=== PATIENT | male | born 1990 | race Caucasian/White ===

== ENCOUNTER 2020-04-09 22:18 | Emergency (ER) | payer OTHER ==
[~2020-04-09] VITALS: Ht 170.2 cm; Wt 81.7 kg
[2020-04-09] MEDS ORDERED: PEPCID20 MG PO (22:44)
[2020-04-09] MEDS ORDERED: CELEXA20 MG PO (22:44)
== END 2020-04-10 08:02 | disposition short-term general hospital (02) ==
LOC: ED 22:18
DX: S02.602A Fracture of unspecified part of body of left mandible, initial encounter for closed fracture (principal); S02.601A Fracture of unspecified part of body of right mandible, initial encounter for closed fracture; F32.9 Major depressive disorder, single episode, unspecified; Z87.891 Personal history of nicotine dependence; Z79.899 Other long term (current) drug therapy; Y04.0XXA Assault by unarmed brawl or fight, initial encounter
CPT/HCPCS: 70486; 96361; 96374; 96376; 99284-25; J1170; J2550; J7030

== ENCOUNTER 2024-08-06 07:04 | Day surgery (SDC) | payer OTHER ==
[~2024-08-06] VITALS: Ht 170.2 cm; Wt 73.0 kg
[~2024-08-06 07:04] MED LIST: CELEXA20 MG PO; INTUNIV4 MG PO; PEPCID20 MG PO; RIZATRIPTAN10 MG PO; TRAZODONE HCL50 MG PO; VENTOLIN HFA18 GM INH
[2024-08-06] MEDS ORDERED: PANTOPRAZOLE SODIUM 40 MG/10 ML VIAL IV ONE (07:30)
[2024-08-06 08:04] LABS: BASOPHILS 0.9 % (0-2); HEMATOCRIT 47.1 % (35.0-50.0); HEMOGLOBIN 15.8 g/dL (12.0-18.0); LYMPHOCYTES 29.1 % (24-44); MCHC 33.7 g/dl (30-36); PLATELET COUNT 242 K/uL (140-440); RBC 5.47 M/ul (4.3-5.7); RDW 12.7 (10.5-15.0)
[2024-08-06 08:14] LABS: ALBUMIN 4.4 g/dL (3.4-5.0); ALBUMIN/GLOBULIN RATIO 1.33 (1.1-2.4); ANION GAP 12.4 (7-21); BILIRUBIN, TOTAL 0.4 ng/dL (0.2-1.0); BUN/CREATININE RATIO 9.57 (6.0-28.6); CALCIUM 9.7 mg/dL (8.5-10.1); CREATININE, SERUM 0.94 mg/dL (0.70-1.30); POTASSIUM 4.4 mmol/L (3.5-5.1); PROTEIN, TOTAL 7.7 g/dL (6.4-8.2)
[2024-08-06] MEDS ORDERED: SODIUM CHLORIDE 0.9% 1,000 ML IV PRN (10:30)
[2024-08-06] MEDS ORDERED: LACTATED RINGER'S 1,000 ML IV SCH (11:15)
[2024-08-06] MEDS ORDERED: LACTATED RINGER'S 1,000 ML IV PRN (11:15)
[2024-08-06] MEDS ORDERED: propofoL 200 MG/20 ML VIAL ONE ×2 (11:31→11:49)
[2024-08-06] MEDS ORDERED: LIDOCAINE HCL 2% 5 ML SDV ONE (11:33)
[2024-08-06] MEDS ORDERED: SUCCINYLCHOLINE IN 0.9% NACL 200 MG/10 ML SYRINGE ONE (11:33)
[2024-08-06] MEDS ORDERED: fentaNYL citrate 100 MCG/2 ML VIAL ONE (11:36)
--- NOTE | 2024-08-06 12:19 | CONS ---
[facility] [address], [place] [address] Signed DATE OF CONSULTATION: 08/06/2024 REQUESTING PHYSICIAN: Dr. Butterfield (emergency room physician). PROBLEM: Ingested razor blade. HISTORY: This 34-year-old white man is a prisoner at [facility] and is accompanied by two guards. Approximately 5:30 this a.m., he swallowed an unsheathe razor blade in attempts at self destruction. He presented to the emergency room having reported some amount of oral bleeding which has since resolved. Evaluation was undertaken which include plain abdominal x-ray and lab studies. Plain x-ray does show a several cm long narrow razor blade typical of those used at [facility]. The patient tells me he took the plastic sheath off it. The patient has had self-destructive behavior in the past including efforts at hanging and so forth. Quite notably, he has only six months more in his incarceration, but says he is influenced by events outside the [facility] regarding his family that have caused him to induce self-harm. PAST MEDICAL HISTORY: Relatively unremarkable except for seizure disorder for which he takes Keppra. He denies any abdominal surgery and no gastrointestinal problems generally speaking. REVIEW OF SYSTEMS: He denies any shortness of breath or chest pain. He has no oropharyngeal pain. He has had no bleeding that has been witnessed since he has been in the emergency room for a few hours. PHYSICAL EXAMINATION: GENERAL: Pleasant, relatively small white man who does not look to be despondent or otherwise troubled at this time. NECK: Trachea is midline. I detect no crepitus. Supraclavicular examination is normal. CHEST: Shows normal respiratory excursion. Pulses regular. ABDOMEN: Soft and nontender. I reviewed his plain abdominal x-ray, which shows faint outlines of the razor blade in the proximal mid stomach itself. ASSESSMENT: Although some razor blades (including this one) might possibly pass without Electronically Signed By: TERRELL SEBASTIAN MD 08/06/24 1219 PATIENT NAME: EL RAMSAY CONSULTATION DATE OF : 89 REPORT #: [id number] PHYSICIAN: TERRELL SEBASTIAN MD PCP: NO PRIMARY CARE PHYSICIAN REPORT IS CONFIDENTIAL AND NOT TO BE RELEASED WITHOUT AUTHORIZATION [facility] [address] [place], [place] [address] Signed intervention. The safest approach would be to perform upper endoscopy and remove the razor blade with all due care. The risk of bleeding, infection, failure to safely remove the razor blade with need for other interventions was discussed with him. He understands and wished to proceed. PLAN: The patient has IV fluids and has been n.p.o. We will arrange for extraction of foreign body in the near term. Likely would use a general endotracheal anesthetic to provide airway protection. MD JUANA Perdomo/KIMANI /[id number] cc: [facility] medical department Dr. Butterfield at [facility] [place] [facility] Copies: ~ Electronically Signed By: TERRELL SEBASTIAN MD 08/06/24 1219 PATIENT NAME: EL RAMSAY CONSULTATION DATE OF : [birth year] REPORT #: [id number] PHYSICIAN: TERRELL SEBASTIAN MD PCP: NO PRIMARY CARE PHYSICIAN REPORT IS CONFIDENTIAL AND NOT TO BE RELEASED WITHOUT AUTHORIZATION
--- NOTE | 2024-08-06 12:25 | NUR ---
PT ARRIVES TO DS FROM PACU VIA STRETCHER. PT REPORTS PAIN 7/10 IRRITATED THROAT, BUT IMPROVES WITH COLD LIQUIDS. PT STANDS UP AND USES URINAL AT BEDSIDE FOR 325 ML CLEAR/YELLOW URINE. PT REPORTS NO NAUSEA. JELLO/PUDDING PROVIDED. PT TOLERATING ICE WATER WITHOUT DIFFICULTY SWALLOWING. NO EVIDENCE OF DRAINAGE AT THIS TIME. X2 GUARDS AT BEDSIDE. CALL LIGHT WITHIN REACH.
[2024-08-06 12:29] VITALS: BP 133/85
--- NOTE | 2024-08-06 12:38 | NUR ---
08/06/24 Rachel Barroso 1203- PT ARRIVES TO PACU, SEMI AHUJA POSITION, NON REACTIVE TO STIMULUS. O2 AT 6L PER MASK, BREATHING EVEN AND NON LABORED. LR INFUSING TO LAC IV, ABD SOFT, NON DISTENDED. ALL MONITORS IN PLACE. ANKLE AND BELLY RESTRAINTS IN PLACE, EOCI OFFICERS X 2 IN PACU. 1208- PT REACTIVE TO VOICE AND TURNS HEAD, NO SIGNS OF DISTRESS. REORIENTED TO TIME AND PLACE. 1214- PT SITTING UP IN BED, DENIES NAUSEA. C/O SORE THROAT, ICE WATER PROVIDED. PT MOVED TO ROOM AIR, WILL CONTINUE TO MONITOR. 1220- PT REPORTS SORE THROAT IMPROVING, PT TOLERATING ROOM AIR. DENIES NAUSEA. PLAN TO GO BACK TO DAY SURGERY. 1225- PT TAKEN BACK TO ROOM 11 IN DAY SURGERY, PT ALERT BUT DROWSY, ANSWERING QUESTIONS. PT NEEDING TO VOID, ASSISTED UP TO SIDE OF BED, STEADY ON FEET. EOCI OFFICER IN ROOM WITH PT, REPORT TO DEEPIKA ROBERT, CARE OF PT TURNED OVER AT THIS TIME.
[2024-08-06] MEDS ORDERED: SEVOFLURANE 250 ML BTL INH ONE (12:47)
--- NOTE | 2024-08-06 13:15 | NUR ---
IN PT ROOM FOR PAIN ASSESSMENT. PT STATES NO ACUTE CHANGES FROM PREVIOUS ASSESSMENT. PT STATES JELLO/PUDDING IS IMPROVING THROAT IRRITATION. X2 GUARDS REMAIN AT BEDSIDE. CALL LIGHT WITHIN REACH, PT STATES NO FURTHER NEEDS OR QUESTIONS AT THIS TIME.
--- NOTE | 2024-08-06 13:20 | NUR ---
IN PT ROOM FOR DC EDUCATION. PT STATES VERBAL UNDERSTANDING TO DC EDUCATION AT THIS TIME W/NO FURTHER QUESTIONS. ENVELOPE PROVIDED TO FEMALE GUARD. PT DRESSED AT THIS TIME. PT OFF OF UNIT AT 1325 VIA WC BY X2 GUARDS. ALL BELONGINGS IN POSSESSION. PT REPORTS NO FURTHER QUESTIONS OR NEEDS AT THIS TIME.
[2024-08-06 13:21] VITALS: BP 133/81
--- NOTE | 2024-08-07 07:59 | OR ---
[facility] [address] [place], [place] [address] Signed DATE OF OPERATION: 08/06/2024 SURGEON: Terrell Sebastian MD PREOPERATIVE DIAGNOSIS: Ingested foreign body (razor blade) . POSTOPERATIVE DIAGNOSIS: Duodenal razor blade. PROCEDURE: Esophagogastroduodenoscopy with extraction of razor blade. ANESTHESIA: General endotracheal; Michelle Kendall CRNA. INDICATION: This 34-year-old white man is a prisoner at [facility] with six months remaining on his sentence. He ingested a razor blade as a "suicide attempt." He has had other suicide attempts in the past he says. The razor blade is visualized on plain x-ray and appears to be free of the usual plastic safety components. Its location on KUB is the stomach. Consideration is made for extraction of the razor blade, though on many occasions such implements were passed spontaneously. The risk of bleeding, infection, and so forth related to upper endoscopy versus that of spontaneous passage were reviewed with the patient. He wished to proceed with extraction and it is offered at this time. FINDINGS: The stomach was completely free of food. The esophagus, stomach and hypopharynx showed no sign of laceration injury. The implement had passed from the stomach into the 3rd portion of the duodenum. It was ultimately withdrawn to the stomach, encircled with a snare net and withdrawn without injury to the stomach or esophageal mucosa. DESCRIPTION OF PROCEDURE: The patient was brought to the endoscopy suite and placed in the supine position, given a general endotracheal anesthetic. A bite block was placed. An Olympus video upper endoscope was passed in the hypopharynx noting good position of the endotracheal tube. The scope was advanced in the esophagus. Throughout its length, it showed no sign of injury or laceration in any way. The scope was entered, the stomach was free of food. There were normal rugal folds. The stomach had mild inflammation. The razor blade was not apparent on 1st inspection. Retroflexed view showed the upper stomach to be free of Electronically Signed By: TERRELL SEBASTIAN MD 08/07/24 0759 PATIENT NAME: EL RAMSAY OPERATIVE REPORT DATE OF : [birth year] REPORT #: [id number] PHYSICIAN: TERRELL SEBASTIAN MD PCP: NO PRIMARY CARE PHYSICIAN REPORT IS CONFIDENTIAL AND NOT TO BE RELEASED WITHOUT AUTHORIZATION [facility] [address] [place], [place] [address] Signed the implement as well. The scope was straightened and then advanced through the pylorus into the duodenum. In the 3rd portion of the duodenum, the razor blade was found. It was askew in its position. Using a biopsy forcep and other manipulations, the razor blade was gently grasped and withdrawn. It delayed in its passage at the and bulbar portions for which a snare was applied to the end carefully manipulated and withdrawn into the stomach. With the razor blade fully visible, at this point a Zhong Net was used to encircle the razor blade and it was carefully withdrawn through the GE junction and out the esophagus without injury to the surrounding tissues. The patient tolerated the procedure well. Reinspection showed no sign of injury. MD JUANA Perdomo/MODL /[id number] cc: Medical Department [facility] Copies: ~ Electronically Signed By: TERRELL SEBASTIAN MD 08/07/24 0759 PATIENT NAME: EL RAMSAY CINDY OPERATIVE REPORT DATE OF : [birth year] REPORT #: [id number] PHYSICIAN: TERRELL SEBASTIAN MD PCP: NO PRIMARY CARE PHYSICIAN REPORT IS CONFIDENTIAL AND NOT TO BE RELEASED WITHOUT AUTHORIZATION
== END 2024-08-06 13:25 | disposition home or self-care (01) ==
LOC: ED 07:04 → DSVR 10:50 → DS 10:50 → DSVR 10:51 → DS 13:25
PROVIDERS: Internal Medicine; ATTEND Surgery
PROC: 0DC98ZZ Extirpation of Matter from Duodenum, Via Natural or Artificial Opening Endoscopic (ICD-10-PCS; principal; 2024-08-06 11:30)
DX: T18.3XXA Foreign body in small intestine, initial encounter (principal); W26.8XXA Contact with other sharp object(s), not elsewhere classified, initial encounter; F31.9 Bipolar disorder, unspecified; G40.909 Epilepsy, unspecified, not intractable, without status epilepticus; J45.909 Unspecified asthma, uncomplicated; Z87.891 Personal history of nicotine dependence; Z79.899 Other long term (current) drug therapy
CPT/HCPCS: 00731; 36415; 71046; 74018; 80053; 83615; 83690; 85025; 96374; 99285-25; J0330; J2003; J2470; J2704; J3010; J7121